=== PATIENT | female | born 1940 | race Two or more races ===

== ENCOUNTER 2016-05-19 17:57 | Emergency (ER) | payer OTHER ==
[~2016-05-19] VITALS: Ht 154.9 cm; Wt 51.3 kg
[2016-05-19 18:20] VITALS: BP 165/93
== END 2016-05-19 21:27 | disposition home or self-care (01) ==
LOC: ER 17:59
DX: H10.13 Acute atopic conjunctivitis, bilateral (principal); E78.00 Pure hypercholesterolemia, unspecified; I10 Essential (primary) hypertension; M19.90 Unspecified osteoarthritis, unspecified site; H57.8 Other specified disorders of eye and adnexa; Z88.0 Allergy status to penicillin
CPT/HCPCS: 99283; A4606; Z7610